=== PATIENT | female | born 1960 | race Caucasian/White ===

== ENCOUNTER → 2023-11-27 08:12 | Outpatient (REF) | payer OTHER, SELFPAY | LOC: RAD 08:12 | PROVIDERS: ATTENDING PHYSICIAN Physician Assistant | DX: Z13.820 Encounter for screening for osteoporosis (principal) | CPT/HCPCS: 77080 ==

== ENCOUNTER → 2024-02-27 17:25 | Outpatient (REF) | payer OTHER, SELFPAY | LOC: RAD 17:25 | PROVIDERS: ATTENDING PHYSICIAN Internal Medicine Cardiovascular Disease; FAMILY PHYSICIAN Physician Assistant | DX: M25.551 Pain in right hip (principal) | CPT/HCPCS: 73502 ==

== ENCOUNTER → 2024-06-09 16:18 | Outpatient (REF) | payer OTHER, SELFPAY | LOC: WDC 16:18 | PROVIDERS: ATTENDING PHYSICIAN Obstetrics & Gynecology Gynecology; FAMILY PHYSICIAN Physician Assistant | DX: Z12.31 Encounter for screening mammogram for malignant neoplasm of breast (principal) | CPT/HCPCS: 77063; 77067 ==

== ENCOUNTER → 2024-09-04 12:22 | Outpatient (REF) | payer OTHER, SELFPAY | LOC: RCS 12:22 | PROVIDERS: ATTENDING PHYSICIAN Physician Assistant | DX: R07.9 Chest pain, unspecified (principal); M87.00 Idiopathic aseptic necrosis of unspecified bone | CPT/HCPCS: 93017; 73552 ==

== ENCOUNTER → 2025-06-15 16:13 | Outpatient (REF) | payer OTHER, SELFPAY | LOC: WDC 16:13 | PROVIDERS: ATTENDING PHYSICIAN Obstetrics & Gynecology Gynecology; FAMILY PHYSICIAN Physician Assistant | DX: Z12.31 Encounter for screening mammogram for malignant neoplasm of breast (principal) | CPT/HCPCS: 77063; 77067 ==